=== PATIENT | female | born 1955 | race Caucasian/White ===

== ENCOUNTER 2016-02-24 13:25 | Outpatient (CLI) | payer OTHER ==
[2016-02-24 14:35] LABS: #Basophils 0.1 thou/uL (0.0-0.2); #Eosinphils 0.3 thou/uL (0.0-0.7); #Lymphocytes 3.1 thou/uL (1.20-3.40); #Monocytes 0.7 thou/uL (0.11-0.59); #Neutrophils 2.7 thou/uL (1.40-6.50); %Basophils 1.1 % (0.0-1.0); %Eosinophils 3.9 % (0.0-10.0); %Lymphocytes 44.6 % (21.0-51.0); %Monocytes 10.6 % (0.0-10.0); Hematocrit 39.1 % (36.0-47.0); Mean Platelet Volume 6.3 fL (7.4-10.4); Red Blood Cell (RBC) Count 4.22 mill/uL (4.20-5.40); White Blood Cell (WBC) Count 6.9 thou/uL (4.8-10.8)
[2016-02-24 14:46] LABS: ALT (SGPT) 37 U/L (0-55); AST (SGOT) 33 U/L (5-34); Alkaline Phosphatase 96 U/L (40-150); Anion Gap 13 mmol/L (10-20); BUN (Urea Nitrogen) 17 mg/dL (9.8-20.1); Bilirubin, Total 0.4 mg/dL (0.2-1.2); Calc. Creatinine Clearance 0 mL/min (70-130); Calcium 9.4 mg/dL (7.8-10.44); Carbon Dioxide 28 mmol/L (22-29); Chloride 105 mmol/L (98-107); Estimated GFR-MDRD 82; Globulin 3.6 g/dL (2.4-3.5); LDL Cholesterol, Calculated 85 mg/dL; Protein, Total 7.4 g/dL (6.0-8.3)
[2016-02-24 14:58] LABS: Hemoglobin A1c 5.7 % (4.0-6.0)
== END 2016-02-24 13:26 | disposition home or self-care (01) ==
LOC: NAV LABSP 13:25
PROVIDERS: ATTEND Internal Medicine
DX: F41.9 Anxiety disorder, unspecified (principal); I10 Essential (primary) hypertension; J44.9 Chronic obstructive pulmonary disease, unspecified; B18.2 Chronic viral hepatitis C; I50.9 Heart failure, unspecified
CPT/HCPCS: 36415; 80053; 80061; 83036; 84443; 85025

== ENCOUNTER 2016-03-22 10:43 | Outpatient (CLI) | payer OTHER ==
[2016-03-22 13:04] LABS: #Basophils 0.1 thou/uL (0.0-0.2); #Eosinphils 0.3 thou/uL (0.0-0.7); #Lymphocytes 2.6 thou/uL (1.20-3.40); #Monocytes 0.7 thou/uL (0.11-0.59); #Neutrophils 3.8 thou/uL (1.40-6.50); %Basophils 0.8 % (0.0-1.0); %Eosinophils 3.7 % (0.0-10.0); %Lymphocytes 35.5 % (21.0-51.0); %Monocytes 9.4 % (0.0-10.0); Hematocrit 38.5 % (36.0-47.0); Mean Platelet Volume 6.3 fL (7.4-10.4); Red Blood Cell (RBC) Count 4.18 mill/uL (4.20-5.40); White Blood Cell (WBC) Count 7.4 thou/uL (4.8-10.8)
== END 2016-03-22 10:44 | disposition home or self-care (01) ==
LOC: NAV LABSP 10:43
PROVIDERS: ATTEND Internal Medicine
DX: I50.9 Heart failure, unspecified (principal); I10 Essential (primary) hypertension
CPT/HCPCS: 36415; 85025

== ENCOUNTER 2016-05-12 08:00 | Outpatient (CLI) | payer OTHER ==
[2016-05-12 08:43] LABS: #Basophils 0.1 thou/uL (0.0-0.2); #Eosinphils 0.3 thou/uL (0.0-0.7); #Lymphocytes 3.8 thou/uL (1.20-3.40); #Monocytes 0.8 thou/uL (0.11-0.59); #Neutrophils 4.9 thou/uL (1.40-6.50); %Basophils 0.9 % (0.0-1.0); %Eosinophils 3.2 % (0.0-10.0); %Lymphocytes 38.7 % (21.0-51.0); %Neutrophils 49.1 % (42.0-75.0); Hemoglobin 13.6 g/dL (12.0-16.0); Mean Corpuscular HGB CONC 32.3 g/dL (32.0-36.0); Mean Corpuscular Hemoglobin 29.6 pg (27.0-31.0); Mean Corpuscular Volume 91.7 fl (81.0-99.0); Mean Platelet Volume 7.1 fL (7.4-10.4); Platelet Count 207 thou/uL (130-400); RBC Distribution Width 13.9 % (11.5-14.5); White Blood Cell (WBC) Count 9.9 thou/uL (4.8-10.8)
== END 2016-05-12 08:01 | disposition home or self-care (01) ==
LOC: NAV LABSP 08:00
PROVIDERS: ATTEND Internal Medicine
DX: I11.0 Hypertensive heart disease with heart failure (principal); I50.9 Heart failure, unspecified
CPT/HCPCS: 36415; 85025

== ENCOUNTER 2016-05-30 07:23 | Outpatient (CLI) | payer OTHER ==
[2016-05-30 08:04] LABS: #Basophils 0.1 thou/uL (0.0-0.2); #Eosinphils 0.3 thou/uL (0.0-0.7); #Lymphocytes 3.1 thou/uL (1.20-3.40); #Monocytes 0.8 thou/uL (0.11-0.59); #Neutrophils 3.9 thou/uL (1.40-6.50); %Basophils 1.2 % (0.0-1.0); %Eosinophils 3.1 % (0.0-10.0); %Lymphocytes 38.4 % (21.0-51.0); %Monocytes 9.5 % (0.0-10.0); %Neutrophils 47.8 % (42.0-75.0); Hemoglobin 12.1 g/dL (12.0-16.0); Mean Corpuscular HGB CONC 33.6 g/dL (32.0-36.0); Mean Corpuscular Volume 89.3 fl (81.0-99.0); Mean Platelet Volume 7.1 fL (7.4-10.4); Platelet Count 200 thou/uL (130-400); RBC Distribution Width 14.5 % (11.5-14.5); Red Blood Cell (RBC) Count 4.04 mill/uL (4.20-5.40); White Blood Cell (WBC) Count 8.1 thou/uL (4.8-10.8)
[2016-05-30 08:12] LABS: ALT (SGPT) 81 U/L (0-55); AST (SGOT) 69 U/L (5-34); Albumin 3.6 g/dL (3.5-5.0); Alkaline Phosphatase 152 U/L (40-150); Anion Gap 15 mmol/L (10-20); BUN (Urea Nitrogen) 13 mg/dL (9.8-20.1); Bilirubin, Total 0.5 mg/dL (0.2-1.2); Calc. Creatinine Clearance 0 mL/min (70-130); Calcium 9.5 mg/dL (7.8-10.44); Carbon Dioxide 23 mmol/L (22-29); Chloride 104 mmol/L (98-107); Estimated GFR-MDRD Greater than 90; Globulin 3.4 g/dL (2.4-3.5); Glucose 125 mg/dL (70-105); Potassium 3.7 mmol/L (3.5-5.1); Sodium 138 mmol/L (136-145)
== END 2016-05-30 07:24 | disposition home or self-care (01) ==
LOC: NAV LABSP 07:23
PROVIDERS: ATTEND Internal Medicine
DX: E87.6 Hypokalemia (principal); I11.0 Hypertensive heart disease with heart failure; I50.9 Heart failure, unspecified; K21.9 Gastro-esophageal reflux disease without esophagitis; B18.2 Chronic viral hepatitis C; J44.9 Chronic obstructive pulmonary disease, unspecified
CPT/HCPCS: 36415; 80053; 85025

== ENCOUNTER 2016-07-06 07:12 | Outpatient (CLI) | payer OTHER ==
[2016-07-06 07:54] LABS: #Basophils 0.1 thou/uL (0.0-0.2); #Eosinphils 0.3 thou/uL (0.0-0.7); #Lymphocytes 3.1 thou/uL (1.20-3.40); #Monocytes 0.8 thou/uL (0.11-0.59); #Neutrophils 4.1 thou/uL (1.40-6.50); %Eosinophils 3.2 % (0.0-10.0); %Lymphocytes 37.1 % (21.0-51.0); %Monocytes 9.7 % (0.0-10.0); %Neutrophils 48.9 % (42.0-75.0); Hemoglobin 12.5 g/dL (12.0-16.0); Mean Corpuscular HGB CONC 31.6 g/dL (32.0-36.0); Mean Corpuscular Hemoglobin 28.2 pg (27.0-31.0); Mean Corpuscular Volume 89.4 fl (81.0-99.0); Mean Platelet Volume 6.6 fL (7.4-10.4); Platelet Count 149 thou/uL (130-400); RBC Distribution Width 14.8 % (11.5-14.5); Red Blood Cell (RBC) Count 4.43 mill/uL (4.20-5.40); White Blood Cell (WBC) Count 8.3 thou/uL (4.8-10.8)
== END 2016-07-06 07:13 | disposition home or self-care (01) ==
LOC: NAV LABSP 07:12
PROVIDERS: ATTEND Internal Medicine
DX: I11.0 Hypertensive heart disease with heart failure (principal); I50.9 Heart failure, unspecified
CPT/HCPCS: 36415; 85025

== ENCOUNTER 2016-07-28 07:15 | Outpatient (CLI) | payer OTHER ==
[2016-07-28 08:11] LABS: #Basophils 0.1 thou/uL (0.0-0.2); #Eosinphils 0.3 thou/uL (0.0-0.7); #Lymphocytes 2.6 thou/uL (1.20-3.40); #Monocytes 0.8 thou/uL (0.11-0.59); #Neutrophils 6.1 thou/uL (1.40-6.50); %Basophils 1.1 % (0.0-1.0); %Eosinophils 3.2 % (0.0-10.0); %Lymphocytes 25.8 % (21.0-51.0); %Monocytes 7.9 % (0.0-10.0); Hemoglobin 12.3 g/dL (12.0-16.0); Mean Corpuscular HGB CONC 31.8 g/dL (32.0-36.0); Mean Corpuscular Hemoglobin 28.2 pg (27.0-31.0); Mean Corpuscular Volume 88.4 fl (81.0-99.0); Mean Platelet Volume 7.2 fL (7.4-10.4); Platelet Count 172 thou/uL (130-400); RBC Distribution Width 14.5 % (11.5-14.5); Red Blood Cell (RBC) Count 4.38 mill/uL (4.20-5.40); White Blood Cell (WBC) Count 9.9 thou/uL (4.8-10.8)
== END 2016-07-28 07:16 | disposition home or self-care (01) ==
LOC: NAV LABSP 07:15
PROVIDERS: ATTEND Internal Medicine
DX: I11.0 Hypertensive heart disease with heart failure (principal); I50.9 Heart failure, unspecified
CPT/HCPCS: 36415; 85025

== ENCOUNTER 2016-07-31 12:15 | Inpatient (IN) | payer OTHER ==
[2016-07-31] MEDS ORDERED: methylPREDNISolone Sod Succ/PF 125 MG/2 ML VIAL ONE (12:39)
[2016-07-31 13:20] LABS: #Basophils 0.1 thou/uL (0.0-0.2); #Eosinphils 0.4 thou/uL (0.0-0.7); #Monocytes 0.7 thou/uL (0.11-0.59); #Neutrophils 6.6 thou/uL (1.40-6.50); %Basophils 1.4 % (0.0-1.0); %Eosinophils 4.1 % (0.0-10.0); %Lymphocytes 11.8 % (21.0-51.0); %Monocytes 7.8 % (0.0-10.0); %Neutrophils 74.9 % (42.0-75.0); Hemoglobin 12.2 g/dL (12.0-16.0); Mean Corpuscular HGB CONC 31.9 g/dL (32.0-36.0); Mean Corpuscular Hemoglobin 28.4 pg (27.0-31.0); Mean Corpuscular Volume 89.1 fl (81.0-99.0); Mean Platelet Volume 6.7 fL (7.4-10.4); Platelet Count 188 thou/uL (130-400); RBC Distribution Width 15.4 % (11.5-14.5); Red Blood Cell (RBC) Count 4.31 mill/uL (4.20-5.40); White Blood Cell (WBC) Count 8.8 thou/uL (4.8-10.8)
[2016-07-31 13:41] LABS: ALT (SGPT) 30 U/L (8-55); AST (SGOT) 39 U/L (5-34); Albumin 3.6 g/dL (3.5-5.0); Alkaline Phosphatase 150 U/L (40-150); Anion Gap 18 mmol/L (10-20); BUN (Urea Nitrogen) 16 mg/dL (9.8-20.1); Bilirubin, Total 0.7 mg/dL (0.2-1.2); Calc. Creatinine Clearance 0 mL/min (70-130); Calcium 8.7 mg/dL (7.8-10.44); Carbon Dioxide 23 mmol/L (22-29); Chloride 103 mmol/L (98-107); Estimated GFR-MDRD 81; Globulin 3.5 g/dL (2.4-3.5); Glucose 140 mg/dL (70-105); Potassium 4.1 mmol/L (3.5-5.1); Protein, Total 7.1 g/dL (6.0-8.3); Sodium 140 mmol/L (136-145)
[2016-07-31] MEDS ORDERED: Clindamycin 150 MG CAP ONE (14:59)
--- NOTE | 2016-07-31 15:17 | RAD ---
TWO VIEWS LEFT LEG INDICATIONS: Left calf pain with infection. FINDINGS: There is no fracture or dislocation. There is no acute osseous abnormality visualized. There is so ft tissue edema. IMPRESSION: No acute osseous abnormality of the left leg. POS: KM
[2016-07-31] MEDS ORDERED: Sodium Chloride 0.9% 10 ML ONE (17:32)
[2016-07-31] MEDS: Sodium Chloride 0.9% 1,000 ML IV SCH (17:38)
[2016-07-31] MEDS: methylPREDNISolone Sod Succ/PF 125 MG/2 ML VIAL IVP SCH (17:38)
[2016-07-31] MEDS: Clindamycin 150 MG CAP PO SCH (17:38)
[2016-08-01] MEDS: Clindamycin 150 MG CAP PO SCH (00:55)
[2016-08-01] MEDS: methylPREDNISolone Sod Succ/PF 125 MG/2 ML VIAL IVP SCH ×5 (00:55→22:59)
[2016-08-01] MEDS: Sodium Chloride 0.9% 1,000 ML IV SCH ×5 (05:45→23:00)
[2016-08-01 06:05] LABS: #Lymphocytes 0.7 thou/uL (1.20-3.40); #Monocytes 0.1 thou/uL (0.11-0.59); #Neutrophils 6.4 thou/uL (1.40-6.50); %Basophils 0.3 % (0.0-1.0); %Monocytes 0.9 % (0.0-10.0); %Neutrophils 88.8 % (42.0-75.0); Hemoglobin 12.4 g/dL (12.0-16.0); Mean Corpuscular HGB CONC 30.9 g/dL (32.0-36.0); Mean Corpuscular Hemoglobin 28.4 pg (27.0-31.0); Mean Corpuscular Volume 91.8 fl (81.0-99.0); Mean Platelet Volume 6.7 fL (7.4-10.4); Platelet Count 166 thou/uL (130-400); RBC Distribution Width 15.6 % (11.5-14.5); Red Blood Cell (RBC) Count 4.36 mill/uL (4.20-5.40); White Blood Cell (WBC) Count 7.2 thou/uL (4.8-10.8)
[2016-08-01] MEDS ORDERED: Bisacodyl 10 MG SUPP PR PRN (06:52)
[2016-08-01] MEDS ORDERED: Guaifenesin DM 100-10/5 ML UDCUP PO PRN (06:52)
[2016-08-01] MEDS ORDERED: Mag-Al Plus 1200 MG/1200 MG/120 MG/30 ML UDCUP PO PRN (06:52)
[2016-08-01] MEDS ORDERED: Ketorolac Tromethamine 30 MG/ML VIAL IVP SCH (07:00)
[2016-08-01] MEDS: cefTRIAXone\\ROCEPHIN 1 GM in Sodium Chloride 0.9% 100 ML IVPB SCH (07:44)
[2016-08-01] MEDS: PROVENTIL INHALER 6.7 G (200 INHALATIONS) INH PRN ×2 (07:45→17:50)
[2016-08-01 08:12] LABS: ALT (SGPT) 30 U/L (8-55); AST (SGOT) 27 U/L (5-34); Albumin 3.6 g/dL (3.5-5.0); Alkaline Phosphatase 151 U/L (40-150); Anion Gap 17 mmol/L (10-20); BUN (Urea Nitrogen) 17 mg/dL (9.8-20.1); Bilirubin, Total 0.8 mg/dL (0.2-1.2); Calc. Creatinine Clearance 132 mL/min (70-130); Calcium 9.5 mg/dL (7.8-10.44); Carbon Dioxide 22 mmol/L (22-29); Chloride 106 mmol/L (98-107); Estimated GFR-MDRD 86; Globulin 4.1 g/dL (2.4-3.5); Glucose 193 mg/dL (70-105); Magnesium 1.6 mg/dL (1.6-2.6); Potassium 3.9 mmol/L (3.5-5.1); Protein, Total 7.7 g/dL (6.0-8.3); Sodium 141 mmol/L (136-145)
[2016-08-01] MEDS: Fluconazole 100 MG TAB PO SCH (08:56)
[2016-08-01] MEDS: Magnesium Chloride 64 MG TAB PO SCH ×2 (08:56→19:46)
[2016-08-01] MEDS: Metoprolol Tartrate 25 MG TAB PO SCH ×2 (08:57→20:21)
[2016-08-01] MEDS: Vancomycin HCl 1 GM in Sodium Chloride 0.9% 250 ML 250 ML IVPB SCH ×2 (09:00→20:25)
--- NOTE | 2016-08-01 11:06 | HP ---
REASON FOR ADMISSION/CHIEF COMPLAINT: Severe diffuse erythematous rash, increased back pain. 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 Still complaining of back pain, but having no significant problem with shortness of breath or chest pain. She had been taking tramadol for her pain as she had a history o f allergies to MORPHINE and CODEINE and has had no significant skin rash until the last 2 weeks had increasing allergic erythematous rash over the entire body, more around the eyes and face. This has begun to scale in the antecubital area and the popliteal area. It has been treated with oral predn isone with no response. It appears to improve, but then worsens when she goes out on pass. She sta cristian that she has not been exposed to any new medicine, perfumes or soaps at home and she denies taki ng any other drugs. She also has had a lesion on her left lower leg that started as a small scaling lesion, mild eczema, but it appears to have worsened, enlarged and become weeping and oozing over t he last several weeks. She is admitted to the hospital this time because of diffuse erythematous ra sh, possible cellulitis, possible allergic reaction and possible evaluation for infection in her don k as she continues to have severe back pain. She was evaluated in the emergency room and found to h ave elevated CRP of 4.58, but a normal lactate 1.2, and a normal white count of 7200. Vital signs h ave remained stable. PAST MEDICAL HISTORY: Remarkable as mentioned above for nicotine, alcohol and drug abuse. She also has a history of anxiety disorder and depression, history of epilepsy, possibly due to alcohol with drawal, history of recurrent anemia again possibly due to alcohol. PAST SURGICAL HISTORY: Positive for an AICD placement for torsades, no definite history of myocardi al infarction or coronary disease. She is status post bilateral tubal ligation. She has had back s urgery. ALLERGIES: She is allergic as mentioned above to CODEINE and MORPHINE. CURRENT MEDICATIONS: At the care home included alprazolam 0.5 three times daily, furosemide 40 twice daily, metoprolol 12.5 twice daily, potassium 20 mEq twice daily, magnesium 64 mg twice daily, tramadol 100 mg every 6 hours as needed. REVIEW OF SYSTEMS: HEENT: She denies any headaches, dizziness, change in vision or hearing, hoarseness or dysphagia. PULMONARY: She denies cough, sputum production, pneumonia, asthma, tuberculosis. She still smokes, but has no shortness of breath with minimal exertion. CARDIOVASCULAR: She denies chest pain, orthopnea, paroxysmal nocturnal dyspnea, edema, palpitations . GASTROINTESTINAL: She denies nausea, vomiting, diarrhea. She does have right upper quadrant pain. She has had some problems with ascites in the past, but none recently on the furosemide. GENITOURINARY: She denies dysuria, hematuria, nocturia. MUSCULOSKELETAL: She denies pain in her hands and knees, but does have chronic pain in her lower ba ck and has had back surgery in the past. GENITOURINARY: She denies dysuria or hematuria. NEUROLOGIC: She denies localized numbness, weakness in arms or extremities. PHYSICAL EXAMINATION: GENERAL: The patient is a middle-aged white female who appears in mild to moderate distress from di ffuse erythematous scaling rash mainly on her face, arms, and on the anterior portion of her body an d the posterior portion. VITAL SIGNS: Blood pressure 122/74, temperature 97, pulse 89, respirations 20, O2 sats 96%. HEENT: Pupils are equal, round, and react to light and accommodation. There is diffuse scaling, re d, swollen periorbital area and around the mouth, nose, hands, oral mucous membranes are slightly de hydrated. NECK: Supple, no nodes or masses. JVP is not elevated. LUNGS: Clear. CARDIAC: Regular rhythm. No gallops or murmurs. ABDOMEN: Soft and nontender with no masses or organomegaly or ascites. SKIN AND EXTREMITIES: Show the diffuse rash, mainly anterior portion of her legs. There is also a scaling red rash with eczematous cracking and oozing measuring 4 cm over the left lower leg. There also appears to be diffuse yeast infection in her perineal area and in her gluteal area. LABORATORY: As mentioned above showed her to have a lactate 1.2, sodium 140, potassium 4.1, chlorid e 103, bicarbonate 23, BUN 16, creatinine 0.74, glucose 140, calcium 8.7, magnesium, earlier was 1.7 , but was not checked yesterday, bilirubin 0.7, AST 39, ALT 30, alkaline phosphatase 150. CRP 4.58, total protein 7.1, albumin 3.6. White count 7200, hematocrit 40, hemoglobin 12. X-ray of her left leg shows soft tissue edema. ASSESSMENT AND PLAN: A 60-year-old white female with a history of chronic back pain, nicotine, drug and alcohol abuse and cirrhosis, been living at the care home, doing fairly well until the last several weeks has developed a scaling rash on her left lower leg treated by the wound doctor with mi nimal response and has developed over the last several days erythematous scaling rash over her face and anterior arms. This has not responded to oral prednisone. She was seen in the emergency room w ith diffuse rash and with increased eczematous lesion and with increasing back pain. She has been t aken off furosemide, it was felt this might be a cause of an allergic reaction and she will be taken off of her tramadol also because of the history of morphine allergy in the past, although she has n ot had any problems until recently and has taken chronically. She will also be evaluated for possib le osteomyelitis of her lumbar spine because of chronic pain. We will have cultures of her lower le g and blood treated for cellulitis. PLAN: 1. Start on broad spectrum treatment with vancomycin, Rocephin, covering for MRSA and possible supe rficial skin organisms. 2. Obtain CT of the lumbar and thoracic spine and may need MRI. 3. Obtain magnesium level and restart magnesium 4. Obtain chest x-ray as not done in the emergency room. 5. Repeat CBC, comp metabolic panel, sed rate after being treated with IV Solu-Medrol for 24 hours.
[2016-08-01] MEDS: ALPRAZolam 0.5 MG TAB PO PRN ×2 (11:59→20:24)
[2016-08-01] MEDS: Acetaminophen 325 MG TAB PO PRN (14:52)
--- NOTE | 2016-08-01 16:37 | CT ---
CT THORACIC SPINE WITH IV CONTRAST CT LUMBAR SPINE WITH IV CONTRAST: Date: 08/01/16 HISTORY: Osteomyelitis. Patient has been experiencing increased back pain for quite some time now. History of spinal surgery. TECHNIQUE: Contiguous axial CT images are obtained through the thoracic and lumbar spine after the administrati on of intravenous contrast. Sagittal and coronal reformatted images are provided. FINDINGS: CT THORACIC SPINE: There is a dual lead left subclavian AICD device noted in place. Vascular calcifications are seen in the thoracic and abdominal aorta. There is a small hiatal hernia. There are increased number of vessels adjacent to the distal esophagus which were not present on the CT abdomen of 12/21/13 and may represent small gastroesophageal varices in this region. There is dependent atelectasis within the lungs bilaterally. Multilevel degenerative changes are seen in the thoracic spine. There is a burst fracture involving the T12 vertebral body with vertebra plana deformity. Exact age of this fracture is indeterminate, but this fracture was not visualized on CT abdomen obtained on . There is retropulsion of fracture fragments into the central spinal canal, which extends to the central spinal canal by 4-5 mm resulting in mild to moderate narrowing of the central spinal can al. The neural foramina at the T11-12 level are patent. There is exaggerated kyphosis of the thoracolumbar spine centered at the level of the wedge shaped c ompression fracture of the T12 vertebral body. Mild degenerative change is seen in the lower cervical spine at the C5-6 and C6-7 levels where there is posterior osteophyte formation resulting in moderate to severe bilateral neural foraminal narrow ing at these levels, as well as moderate narrowing of the central spinal canal. There is a small right paracentral disc protrusion at the T6-7 level, which narrows the ventral suba rachnoid space but does not contact the spinal cord. There is vacuum phenomenon seen in the T11 and T12 vertebral bodies with end plate degenerative ulna ges at the T10-11 level. The neural foramina of the thoracic spine are patent. There is slight loss of height centrally involving the superior end plate of T5 vertebral body which could represent a minimal compression deformity of indeterminate age as well. There is no additiona l fracture or subluxation seen involving the thoracic spine. CT LUMBAR SPINE: There are postsurgical changes at the L3-4 level with evidence of QING cages at the L3-4 level. These was seen on the prior exam on 12/21/13. No hardware complication is appreciated. As noted above, there is a burst fracture with severe loss of height anteriorly. There is sclerotic density seen in the inferior end plate of the L1 vertebral body probably related to degenerative changes. There are also end plate degenerative changes at the L2-3 and L3-4 levels. There is slight Grade I anterolisthesis of L4 on L5. The degree of listhesis measures approximately 5.0 mm. There is a large Schmorl's node in the superior end plate of the L5 vertebral body. No fract ure is appreciated involving the lumbar spine. There are multilevel degenerative changes present. L1-2 Level: There is a mild broad based disc osteophyte complex resulting in mild narrowing of the central spina l canal. Neural foramina are patent. L2-3 Level: There is loss of intervertebral disc height with vacuum phenomenon of the intervertebral disc and mi ld end plate degenerative changes. There is mild broad based disc osteophyte complex resulting in mo derate to severe narrowing of the central spinal canal. There is mild bilateral neural foraminal jeni rowing. L3-4 Level: There are postsurgical changes of the intervertebral disc space with metallic hardware present. No d isc bulge or disc herniation is appreciated, although there is artifact from the intradiscal hardwar e. Each neural foramen is patent. L4-5 Level: There is loss of intervertebral disc height with vacuum phenomenon. There are end plate degenerative changes. There is Grade I anterolisthesis with severe facet hypertrophic changes and a broad based disc osteophyte complex. Findings result in severe narrowing of the central spinal canal, as well as narrowing of the lateral recesses. There is also mild to moderate left and what appears to be sever e right-sided neural foraminal narrowing. L5-S1 Level: There is no disc bulge or disc herniation. Mild facet hypertrophic changes are seen. Central spinal canal and neural foramina are patent. Dense vascular calcifications are seen in the abdominal aorta and involving the iliac arteries. There is a subcentimeter, too small to characterize, hypodense lesion mid portion of left kidney, st atistically likely representing a cyst. Innumerable calcifications are seen diffusely throughout the visualized pancreas, likely sequelae of prior pancreatitis. Dense vascular calcifications are seen in the abdominal aorta and involving the iliac arteries. IMPRESSION: 1. Burst fracture of the T12 vertebral body as described above of indeterminate age. 2. Mild degenerative changes in the remainder of the thoracic spine. 3. Multilevel degenerative changes in the thoracic and lumbar spine, greatest at the L4-5 level, wh ere there is severe narrowing at the central spinal canal and severe right and moderate left-sided n eural foraminal narrowing. There are prominent end plate degenerative changes at this level. 4. End plate degenerative changes at the T10-11 and T11-12 levels. 5. Small hiatal hernia with increased vasculature adjacent to the esophagus which may represent mil d gastroesophageal varices. 6. Dense vascular calcifications. 7. No acute fracture is seen involving the thoracic or lumbar spine. POS: KM
[2016-08-01] MEDS: traMADol HCl 50 MG TAB PO PRN ×2 (16:43→22:38)
[2016-08-02] MEDS: ALPRAZolam 0.5 MG TAB PO PRN ×3 (04:38→21:43)
[2016-08-02] MEDS: traMADol HCl 50 MG TAB PO PRN ×4 (04:38→21:41)
[2016-08-02] MEDS: methylPREDNISolone Sod Succ/PF 125 MG/2 ML VIAL IVP SCH ×4 (05:11→23:29)
[2016-08-02 05:28] LABS: Lactic Acid 1.7 mmol/L (0.5-2.2)
[2016-08-02 05:41] LABS: #Basophils 0.1 thou/uL (0.0-0.2); #Lymphocytes 0.6 thou/uL (1.20-3.40); #Monocytes 0.3 thou/uL (0.11-0.59); #Neutrophils 14.6 thou/uL (1.40-6.50); %Basophils 0.3 % (0.0-1.0); %Lymphocytes 3.8 % (21.0-51.0); %Monocytes 2.2 % (0.0-10.0); %Neutrophils 93.7 % (42.0-75.0); Hemoglobin 12.4 g/dL (12.0-16.0); Mean Corpuscular HGB CONC 32.6 g/dL (32.0-36.0); Mean Corpuscular Hemoglobin 28.3 pg (27.0-31.0); Mean Corpuscular Volume 86.7 fl (81.0-99.0); Mean Platelet Volume 6.9 fL (7.4-10.4); Platelet Count 196 thou/uL (130-400); RBC Distribution Width 14.4 % (11.5-14.5); Red Blood Cell (RBC) Count 4.37 mill/uL (4.20-5.40); White Blood Cell (WBC) Count 15.6 thou/uL (4.8-10.8)
[2016-08-02] MEDS ORDERED: Metolazone 5 MG TAB PO SCH (06:30)
[2016-08-02] MEDS ORDERED: Spironolactone 50 MG TAB PO SCH (08:00)
[2016-08-02] MEDS: cefTRIAXone\\ROCEPHIN 1 GM in Sodium Chloride 0.9% 100 ML IVPB SCH (08:31)
[2016-08-02] MEDS: Acetaminophen 325 MG TAB PO PRN ×3 (08:35→21:43)
[2016-08-02] MEDS: Fluconazole 100 MG TAB PO SCH (08:37)
[2016-08-02] MEDS: Metoprolol Tartrate 25 MG TAB PO SCH ×2 (08:37→21:40)
[2016-08-02] MEDS: Vancomycin HCl 1 GM in Sodium Chloride 0.9% 250 ML 250 ML IVPB SCH ×2 (09:58→21:41)
[2016-08-02] MEDS: PROVENTIL INHALER 6.7 G (200 INHALATIONS) INH PRN ×2 (10:07→21:53)
[2016-08-02] MEDS: Magnesium Chloride 64 MG TAB PO SCH ×2 (11:06→21:40)
--- NOTE | 2016-08-02 13:58 | PRG ---
DATE OF SERVICE: 08/02/2016 SUBJECTIVE: The patient lying in bed, states that she is in pain from her back. No relief with her tramadol. She is having some decreased erythema and tenderness over leg, had scaling of her skin l esions. OBJECTIVE: VITAL SIGNS: Shows blood pressure 159/86, respirations 18, O2 sats 96%, temperature of 97.8, pulse 87. LUNGS: Clear. CARDIAC: Examination shows regular rhythm. ABDOMEN: Distended with some possible fluid wave. SKIN: Shows decreased erythema and decreased swelling of the face with scaling of the facial rash. Persistent erythema of the legs and droplet drying lesions on the leg. Culture is still pending. LABORATORY DATA: Shows sedimentation rate has only minimally elevated at 49. White count is up to 15,600, hematocrit 37, and hemoglobin 12. Lactate still normal at 1.7. C-reactive protein down to 2.67. ASSESSMENT: 1. Resolving allergic reaction versus sepsis on IV steroids and antibiotics. 2. Resolving eczema and possible superimposed infection, on IV vancomycin and Rocephin with culture pending. 3. Chronic back pain with CT scan of the back showing only severe multilevel degenerative joint chucky nges and a compression fracture of the lumbar spine as well as lumbar spinal stenosis. PLAN: Continue IV steroids. Continue IV vancomycin and Rocephin. Discontinue IV fluids. Give 1 d ose of metolazone 5 mg now. Start spironolactone 50 mg daily. Await culture results. Continue Tra madol 50 mg every 6 hours, this is the maximum dose for this patient and allergic to MORPHINE and CO DEINE. FINAL DIAGNOSIS: Cirrhosis with possible increased ascites with her IV fluids.
[2016-08-02 20:49] LABS: Vancomycin, Trough 9.9 ug/mL
[2016-08-03 01:03] LABS: Bilirubin Negative (Negative); Blood, Urine Negative (Negative); Clarity Clear (Clear); Glucose, Urine (Dipstick) Negative (Negative); Leukocyte Trace (Negative); Nitrite Negative (Negative); Protein, Urine (Dipstick) Negative (Neg-Trace); RBC/HPF None Seen HPF (0-3); Squamous Epithelial 0-3 HPF (0-3); Urobilinogen 0.2 mg/dL (0.2-1.0)
[2016-08-03 01:04] LABS: Bacteria/HPF Rare-Few HPF (None Seen)
[2016-08-03] MEDS: ALPRAZolam 0.5 MG TAB PO PRN ×4 (05:01→23:33)
[2016-08-03] MEDS: Acetaminophen 325 MG TAB PO PRN ×3 (05:01→23:32)
[2016-08-03] MEDS: traMADol HCl 50 MG TAB PO PRN ×4 (05:01→23:33)
[2016-08-03] MEDS: methylPREDNISolone Sod Succ/PF 125 MG/2 ML VIAL IVP SCH ×3 (05:02→18:13)
[2016-08-03 05:17] LABS: #Monocytes 0.4 thou/uL (0.11-0.59); #Neutrophils 14.4 thou/uL (1.40-6.50); %Basophils 0.2 % (0.0-1.0); %Lymphocytes 6.1 % (21.0-51.0); %Monocytes 2.3 % (0.0-10.0); %Neutrophils 91.5 % (42.0-75.0); Hemoglobin 14.2 g/dL (12.0-16.0); Mean Corpuscular HGB CONC 32.3 g/dL (32.0-36.0); Mean Corpuscular Hemoglobin 28.4 pg (27.0-31.0); Mean Platelet Volume 6.7 fL (7.4-10.4); Platelet Count 236 thou/uL (130-400); RBC Distribution Width 14.7 % (11.5-14.5); Red Blood Cell (RBC) Count 4.98 mill/uL (4.20-5.40); White Blood Cell (WBC) Count 15.8 thou/uL (4.8-10.8)
[2016-08-03 05:22] LABS: Manual Diff?? NO
[2016-08-03 05:51] LABS: ALT (SGPT) 40 U/L (8-55); AST (SGOT) 29 U/L (5-34); Albumin 3.8 g/dL (3.5-5.0); Alkaline Phosphatase 144 U/L (40-150); Anion Gap 18 mmol/L (10-20); BUN (Urea Nitrogen) 17 mg/dL (9.8-20.1); Bilirubin, Total 0.6 mg/dL (0.2-1.2); Calc. Creatinine Clearance 131 mL/min (70-130); Calcium 10.1 mg/dL (7.8-10.44); Carbon Dioxide 22 mmol/L (22-29); Chloride 103 mmol/L (98-107); Estimated GFR-MDRD 83; Globulin 4.5 g/dL (2.4-3.5); Glucose 187 mg/dL (70-105); Potassium 3.1 mmol/L (3.5-5.1); Protein, Total 8.3 g/dL (6.0-8.3); Sodium 140 mmol/L (136-145)
[2016-08-03] MEDS: cefTRIAXone\\ROCEPHIN 1 GM in Sodium Chloride 0.9% 100 ML IVPB SCH (06:19)
--- NOTE | 2016-08-03 08:19 | PRG ---
DATE OF SERVICE: 08/03/2016 SUBJECTIVE: The patient feels much better with decreasing rash and itching, more awake and alert, e ating well, going to the bathroom, up in the room. She is still having chronic lower back pain, but it is tolerable on the tramadol. OBJECTIVE: Shows white count still elevated at 15,000 on IV steroids, hematocrit 43, hemoglobin 14. Sodium 140, potassium down 3.1, chloride 103, bicarb 22, BUN 17, creatinine 0.72, glucose 187, jerry cium 10.1, total bilirubin 0.6, AST 29, ALT 44, alkaline phosphatase 144. Urinalysis showed 4-6 whi te cells, trace leukocyte, vancomycin trough is barely subtherapeutic at 7.9. Culture of the wound is showing Staph, many colonies identification and sensitivity undetermined at this time. The abdomen is soft and nontender. Lungs are clear. Cardiac examination shows regular rhythm. Ski n shows fading erythematous rash with scaling of the erythema, erythematous eczema on the left leg s hows drying eczematous area. No further oozing and decreasing erythema. ASSESSMENT: 1. Resolving allergic reaction, most likely due to furosemide. 2. Resolving Staph infection of the left lower leg on IV vancomycin. 3. Stable degenerative disk disease and chronic pain of the lower back. 4. Improved fluid overload with a metolazone. 5. New onset of hypokalemia. PLAN: Discontinue Rocephin, continue vancomycin, continue IV steroids today, possibly switch to ora l this afternoon. Start on increased potassium chloride at 20 three times daily, discontinue Difluc an today as yeast infection is better. Increase Spirolactone to 50 twice daily. Repeat base met profile in the a.m. Repeat CBC in the a.m., possibly transfer back to the [facility] tomorrow if able to be oral antibiotics and oral prednisone.
[2016-08-03] MEDS: Magnesium Chloride 64 MG TAB PO SCH ×2 (09:05→21:13)
[2016-08-03] MEDS: Spironolactone 50 MG TAB PO SCH ×2 (09:08→21:13)
[2016-08-03] MEDS: Metoprolol Tartrate 25 MG TAB PO SCH ×2 (09:08→21:08)
[2016-08-03] MEDS: Vancomycin HCl 1 GM in Sodium Chloride 0.9% 250 ML 250 ML IVPB SCH (09:09)
[2016-08-03] MEDS: Fluconazole 100 MG TAB PO SCH (09:09)
[2016-08-03 17:46] VITALS: BMI 34.8
[2016-08-03] MEDS: PROVENTIL INHALER 6.7 G (200 INHALATIONS) INH PRN (18:12)
[2016-08-03] MEDS: Cipro 250 MG TAB PO SCH (21:09)
[2016-08-04] MEDS: Acetaminophen 325 MG TAB PO PRN ×3 (04:44→19:39)
[2016-08-04] MEDS: traMADol HCl 50 MG TAB PO PRN ×4 (04:44→23:42)
[2016-08-04] MEDS: ALPRAZolam 0.5 MG TAB PO PRN ×3 (04:44→19:39)
[2016-08-04 05:08] LABS: Band 5 % (5-11); Hemoglobin 14.4 g/dL (12.0-16.0); Lymphocytes 6 % (21-51); MDiff Complete? YES; Mean Corpuscular HGB CONC 32.2 g/dL (32.0-36.0); Mean Corpuscular Hemoglobin 27.9 pg (27.0-31.0); Mean Corpuscular Volume 86.7 fl (81.0-99.0); Mean Platelet Volume 6.4 fL (7.4-10.4); Monocytes 2 % (0-10); Neutrophil 87 % (42-75); PLT Morphology Comment Appears Adequate; Platelet Count 251 thou/uL (130-400); RBC Distribution Width 14.4 % (11.5-14.5); RBC Morphology Normal; Red Blood Cell (RBC) Count 5.15 mill/uL (4.20-5.40); White Blood Cell (WBC) Count 13.6 thou/uL (4.8-10.8)
[2016-08-04 05:22] LABS: Anion Gap 18 mmol/L (10-20); BUN (Urea Nitrogen) 22 mg/dL (9.8-20.1); Calc. Creatinine Clearance 134 mL/min (70-130); Calcium 9.9 mg/dL (7.8-10.44); Carbon Dioxide 24 mmol/L (22-29); Chloride 100 mmol/L (98-107); Estimated GFR-MDRD 85; Glucose 170 mg/dL (70-105); Sodium 139 mmol/L (136-145)
[2016-08-04 05:33] LABS: Potassium 2.8 mmol/L (3.5-5.1)
[2016-08-04] MEDS ORDERED: Potassium Chloride 20 MEQ TAB PO SCH (06:00)
[2016-08-04] MEDS ORDERED: Potassium Chloride 20 MEQ in Premix Bag 1 BAG IVPB SCH (06:00)
[2016-08-04] MEDS: Cipro 250 MG TAB PO SCH ×2 (06:02→19:39)
[2016-08-04] MEDS: Spironolactone 50 MG TAB PO SCH ×2 (08:37→19:39)
[2016-08-04] MEDS: Metoprolol Tartrate 25 MG TAB PO SCH ×2 (08:38→19:39)
[2016-08-04] MEDS: predniSONE 20 MG TAB PO SCH (08:39)
[2016-08-04] MEDS: Magnesium Chloride 64 MG TAB PO SCH ×3 (08:39→20:49)
[2016-08-04] MEDS: PROVENTIL INHALER 6.7 G (200 INHALATIONS) INH PRN (13:11)
[2016-08-04 14:55] LABS: Potassium 3.4 mmol/L (3.5-5.1)
[2016-08-05] MEDS: ALPRAZolam 0.5 MG TAB PO PRN ×2 (02:27→08:31)
[2016-08-05] MEDS: Acetaminophen 325 MG TAB PO PRN ×2 (06:16→10:54)
[2016-08-05] MEDS: Cipro 250 MG TAB PO SCH (06:16)
[2016-08-05] MEDS: traMADol HCl 50 MG TAB PO PRN ×2 (06:16→10:53)
[2016-08-05 07:48] VITALS: BP 148/82; TEMP 97.9
[2016-08-05] MEDS: Metoprolol Tartrate 25 MG TAB PO SCH (08:30)
[2016-08-05] MEDS: Magnesium Chloride 64 MG TAB PO SCH (08:30)
[2016-08-05] MEDS: predniSONE 20 MG TAB PO SCH (08:30)
[2016-08-05] MEDS: Spironolactone 50 MG TAB PO SCH (08:31)
--- NOTE | 2016-08-05 11:09 | PRG ---
MEDICAL PROGRESS NOTE DATE OF PROGRESS NOTE: 08/04/2016 SUBJECTIVE: The patient feels much better with decreasing itching; persistent pain in her back, but controlled with tramadol, decrease in edema. Good urine output. No fever or chills. Good appetit e. OBJECTIVE: VITAL SIGNS: Shows blood pressure 152/89, temperature 95.8, pulse 102, respirations 20, O2 saturati on is 93%. LUNGS: Clear. CARDIAC: Shows regular rhythm. ABDOMEN: Slightly distended, no tenderness. SKIN AND EXTREMITIES: Show fading erythematous rash with scaling around the eyes and skin and also fading erythematous rash around the left lower leg eczematous lesion. LABORATORY DATA: Showed culture did return yesterday as mentioned above with MSSA has been started on Cipro orally appears to be doing well. White count has decreased to 13,600, hematocrit 44, hemog lobin 14 on 10 mg of prednisone; however, chemistry did show the potassium had decreased to 2.8, wit h a sodium 139, chloride 100, bicarbonate 24, BUN 22, and creatinine 0.71. This is despite being on 20 mEq of potassium twice daily and spironolactone 50 twice daily. ASSESSMENT: 1. Resolving allergic reaction to furosemide. 2. Resolving methicillin-resistant Staph aureus and Enterococcus sensitive to Cipro and amoxicillin . 3. Stable cirrhosis with decreased ascites with metolazone and discontinuation of IV fluids. 4. Worsened hypokalemia despite supplemental potassium and potassium-sparing diuretic. PLAN: Increase KCl to 20 mEq p.o. t.i.d. and give 20 mEq IV now. Repeat electrolytes this afternoo n. Continue on Cipro and prednisone the next 10 days; add amoxicillin on discharge 500 q.8 hours fo r the Enterococcus.
--- NOTE | 2016-08-05 22:18 | DIS ---
DATE OF ADMISSION: August 01, 2016 DATE OF DISCHARGE: August 05, 2016 FINAL DIAGNOSES: 1. Allergic reaction to furosemide, resolving with IV and now oral prednisone and discontinuation o f furosemide. 2. Methicillin-resistant enterococcal infection of left lower leg with subsequent cellulitis, resol ving on Cipro and amoxicillin. 3. Chronic back pain secondary to severe degenerative disk disease and joint disease with no eviden ce for osteomyelitis, stable on tramadol. 4. Labile hypertension, controlled on metoprolol with no evidence of arrhythmia or angina. HOSPITAL COURSE: Patient is a 60-year-old white female with a history of degenerative disk disease, joint disease, chronic pain as well as cirrhosis secondary to drug abuse in the past and history of arrhythmia in the past, who had been at the [facility] because of chronic pain, anxiety has impro hakeem, has been ambulating, but has developed a cellulitis on her left lower leg with subsequent onset of diffuse erythema to a rash. This was felt to be due to furosemide and she had diffuse allergic reaction, the furosemide was discontinued. She was started on Solu-Medrol with rapid improvement in the rash. She also had culture of the eczematous lesion in her left leg, which grew methicillin-re sistant Staph and was treated initially with vancomycin and then with Cipro and was sensitive to camila t. Had also grew Enterococcus that has been started on treatment with amoxicillin. The rashes has also begin to scale and peel off with healing of the left lower leg. She is having stable, but tole rable pain in her back on tramadol 50 mg q.6 h. She did have a significant diuresis with metolazone after IVs were discontinued with decreased ascites and abdominal swelling, but did develop worsenin g of hypokalemia, requiring an increase in her potassium to 3 times daily and a a dose of IV potassi um. Now on discharge, she feels well, walking in the thayer, she is eating well, she is having stable back pain. No shortness of breath or chest pain or palpitations. Her rashes mentioned above is gr eatly improved with minimal erythema of her face and hands and resolved swelling and minimal scaling . The left leg shows markedly decreased erythema and scaling and healing of the eczematous lesion. Her laboratory show at discharge in her potassium is improved to 3.4, sodium 139, chloride 100, bic arbonate 24, BUN 22, creatinine 0.71. Her white count is 13.6, but feel this is due to steroids and it was normal on admission. Hematocrit was 44, hemoglobin was 14. Sed rate was 49. She will be f ollowed at the halfway by myself, 1 week of steroids, 1 week of Cipro and amoxicillin, continue on her tramadol and previous hospitalization medications are alprazolam 0.5 t.i.d., albuterol inhal er as needed, Cipro 250 twice daily as mentioned above for a week, metoprolol 25 twice daily, an inc rease 12.5 twice daily, KCl increased to 20 three times daily, sertraline 50 daily, spironolactone 5 0 twice daily, prednisone 10 mg daily for a week, tramadol 50 q.6 h. as mentioned above. She will h ave basic metabolic profile done in 1 week.
== END 2016-08-05 12:58 | DRG 603 ==
LOC: NAV ERS 12:15 → NAV ACUTE 15:42
PROVIDERS: ADMIT Internal Medicine; ATTEND Internal Medicine
DX: L03.116 Cellulitis of left lower limb (principal); B37.89 Other sites of candidiasis; E87.70 Fluid overload, unspecified; K70.31 Alcoholic cirrhosis of liver with ascites; E83.42 Hypomagnesemia; B95.62 Methicillin resistant Staphylococcus aureus infection as the cause of diseases classified elsewhere; B95.2 Enterococcus as the cause of diseases classified elsewhere; L25.8 Unspecified contact dermatitis due to other agents; T50.1X5A Adverse effect of loop [high-ceiling] diuretics, initial encounter; E87.6 Hypokalemia; M51.36 Other intervertebral disc degeneration, lumbar region; I10 Essential (primary) hypertension; B19.20 Unspecified viral hepatitis C without hepatic coma; F19.21 Other psychoactive substance dependence, in remission; F17.210 Nicotine dependence, cigarettes, uncomplicated; F10.20 Alcohol dependence, uncomplicated; J44.9 Chronic obstructive pulmonary disease, unspecified; Z95.810 Presence of automatic (implantable) cardiac defibrillator; F41.9 Anxiety disorder, unspecified; F32.9 Major depressive disorder, single episode, unspecified; G40.909 Epilepsy, unspecified, not intractable, without status epilepticus; Z88.5 Allergy status to narcotic agent
CPT/HCPCS: 36415; 72129; 72132; 80053; 80202; 81003; 81015; 83605; 83735; 85025; 85652; 86140; 87040; 87070; 87077; 87086; 87186; 87205; 94640; 96374; A4216; J0696; J1885; J2930; J3370; J3480; J7050; J7506; J7620

== ENCOUNTER 2016-08-08 09:16 | Outpatient (CLI) | payer OTHER ==
[2016-08-08 10:42] LABS: Anion Gap 16 mmol/L (10-20); BUN (Urea Nitrogen) 17 mg/dL (9.8-20.1); Calc. Creatinine Clearance 0 mL/min (70-130); Calcium 9.4 mg/dL (7.8-10.44); Carbon Dioxide 20 mmol/L (22-29); Chloride 108 mmol/L (98-107); Estimated GFR-MDRD 85; Glucose 113 mg/dL (70-105); Potassium 4.7 mmol/L (3.5-5.1); Sodium 139 mmol/L (136-145)
== END 2016-08-08 09:17 | disposition home or self-care (01) ==
LOC: NAV LABSP 09:16
PROVIDERS: ATTEND Internal Medicine
DX: I10 Essential (primary) hypertension (principal); J44.9 Chronic obstructive pulmonary disease, unspecified; L03.90 Cellulitis, unspecified
CPT/HCPCS: 36415; 80048

== ENCOUNTER 2016-08-22 11:04 | Emergency (ER) | payer OTHER ==
[2016-08-22] MEDS ORDERED: traMADol HCl 50 MG TAB ONE (11:42)
[2016-08-22 12:14] LABS: ALT (SGPT) 23 U/L (8-55); AST (SGOT) 21 U/L (5-34); Albumin 3.8 g/dL (3.5-5.0); Alkaline Phosphatase 237 U/L (40-150); Anion Gap 13 mmol/L (10-20); BUN (Urea Nitrogen) 17 mg/dL (9.8-20.1); Bilirubin, Total 0.8 mg/dL (0.2-1.2); Calc. Creatinine Clearance 0 mL/min (70-130); Calcium 9.6 mg/dL (7.8-10.44); Carbon Dioxide 20 mmol/L (22-29); Chloride 108 mmol/L (98-107); Estimated GFR-MDRD 85; Globulin 3.4 g/dL (2.4-3.5); Glucose 172 mg/dL (70-105); Lipase 14 U/L (8-78); Potassium 4.2 mmol/L (3.5-5.1); Protein, Total 7.2 g/dL (6.0-8.3); Sodium 137 mmol/L (136-145)
[2016-08-22 12:18] LABS: #Eosinphils 0.2 thou/uL (0.0-0.7); #Lymphocytes 1.3 thou/uL (1.20-3.40); #Monocytes 0.5 thou/uL (0.11-0.59); #Neutrophils 6.6 thou/uL (1.40-6.50); %Basophils 0.5 % (0.0-1.0); %Eosinophils 2.5 % (0.0-10.0); %Lymphocytes 15.2 % (21.0-51.0); %Monocytes 5.5 % (0.0-10.0); %Neutrophils 76.3 % (42.0-75.0); Hemoglobin 12.8 g/dL (12.0-16.0); Mean Corpuscular HGB CONC 31.5 g/dL (32.0-36.0); Mean Corpuscular Hemoglobin 27.3 pg (27.0-31.0); Mean Corpuscular Volume 86.4 fl (81.0-99.0); Mean Platelet Volume 6.9 fL (7.4-10.4); Platelet Count 151 thou/uL (130-400); RBC Distribution Width 14.2 % (11.5-14.5); Red Blood Cell (RBC) Count 4.69 mill/uL (4.20-5.40); White Blood Cell (WBC) Count 8.6 thou/uL (4.8-10.8)
== END 2016-08-22 13:03 | disposition home or self-care (01) ==
LOC: NAV ERS 11:04
DX: L25.9 Unspecified contact dermatitis, unspecified cause (principal); L03.116 Cellulitis of left lower limb; B37.89 Other sites of candidiasis
CPT/HCPCS: 80053; 82150; 83690; 85025; 99284

== ENCOUNTER 2016-08-29 12:40 | Outpatient (CLI) | payer OTHER ==
[2016-08-29 14:10] LABS: Hemoglobin 12.8 g/dL (12.0-16.0); Mean Corpuscular HGB CONC 31.8 g/dL (32.0-36.0); Mean Platelet Volume 6.8 fL (7.4-10.4); Platelet Count 131 thou/uL (130-400); RBC Distribution Width 15.2 % (11.5-14.5); Red Blood Cell (RBC) Count 4.58 mill/uL (4.20-5.40); White Blood Cell (WBC) Count 6.6 thou/uL (4.8-10.8)
[2016-08-29 14:11] LABS: Lymphocytes 37 % (21-51); MDiff Complete? YES; Monocytes 12 % (0-10); Neutrophil 51 % (42-75); PLT Morphology Comment Appears Adequate
== END 2016-08-29 12:41 | disposition home or self-care (01) ==
LOC: NAV LABSP 12:40
PROVIDERS: ATTEND Internal Medicine
DX: I50.9 Heart failure, unspecified (principal); I10 Essential (primary) hypertension
CPT/HCPCS: 36415; 85025

== ENCOUNTER 2016-10-10 08:50 | Outpatient (CLI) | payer OTHER ==
[2016-10-10 09:41] LABS: #Basophils 0.1 thou/uL (0.0-0.2); #Eosinphils 0.2 thou/uL (0.0-0.7); #Lymphocytes 2.4 thou/uL (1.20-3.40); #Monocytes 0.8 thou/uL (0.11-0.59); #Neutrophils 5.2 thou/uL (1.40-6.50); %Basophils 0.9 % (0.0-1.0); %Eosinophils 2.7 % (0.0-10.0); %Lymphocytes 27.6 % (21.0-51.0); %Monocytes 9.4 % (0.0-10.0); %Neutrophils 59.4 % (42.0-75.0); Hemoglobin 13.8 g/dL (12.0-16.0); Mean Corpuscular HGB CONC 31.8 g/dL (32.0-36.0); Mean Corpuscular Hemoglobin 27.6 pg (27.0-31.0); Mean Corpuscular Volume 86.9 fl (81.0-99.0); Mean Platelet Volume 7.3 fL (7.4-10.4); Platelet Count 178 thou/uL (130-400); RBC Distribution Width 14.3 % (11.5-14.5); Red Blood Cell (RBC) Count 4.99 mill/uL (4.20-5.40); White Blood Cell (WBC) Count 8.8 thou/uL (4.8-10.8)
== END 2016-10-10 08:51 | disposition home or self-care (01) ==
LOC: NAV LABSP 08:50
PROVIDERS: ATTEND Internal Medicine
DX: I11.0 Hypertensive heart disease with heart failure (principal); I50.9 Heart failure, unspecified
CPT/HCPCS: 36415; 85025

== ENCOUNTER 2016-10-30 11:00 | Outpatient (CLI) | payer OTHER ==
[2016-10-30 12:08] LABS: #Eosinphils 0.2 thou/uL (0.0-0.7); #Lymphocytes 2.2 thou/uL (1.20-3.40); #Monocytes 0.9 thou/uL (0.11-0.59); #Neutrophils 4.2 thou/uL (1.40-6.50); %Basophils 0.5 % (0.0-1.0); %Eosinophils 2.9 % (0.0-10.0); %Lymphocytes 28.7 % (21.0-51.0); %Monocytes 11.7 % (0.0-10.0); %Neutrophils 56.2 % (42.0-75.0); Hemoglobin 12.7 g/dL (12.0-16.0); Mean Corpuscular HGB CONC 31.4 g/dL (32.0-36.0); Mean Corpuscular Hemoglobin 27.5 pg (27.0-31.0); Mean Corpuscular Volume 87.8 fl (81.0-99.0); Mean Platelet Volume 6.7 fL (7.4-10.4); Platelet Count 165 thou/uL (130-400); RBC Distribution Width 14.6 % (11.5-14.5); White Blood Cell (WBC) Count 7.5 thou/uL (4.8-10.8)
== END 2016-10-30 11:01 | disposition home or self-care (01) ==
LOC: NAV LABSP 11:00
PROVIDERS: ATTEND Internal Medicine
DX: D72.819 Decreased white blood cell count, unspecified (principal)
CPT/HCPCS: 36415; 85025